=== PATIENT | female | born 2000 | race Two or more races ===

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

== ENCOUNTER 2022-04-06 19:53 | Emergency (ER) | payer OTHER ==
[~2022-04-06] VITALS: Ht 170.2 cm; Wt 78.5 kg
[~2022-04-06 19:53] MED LIST: KETO10TA2 PO
[2022-04-06] MEDS ORDERED: TRI-LO-ESTARYL1 EACH PO (20:10)
[2022-04-07] MEDS ORDERED: NAPROXEN375 MG PO (04:28)
[2022-04-07] MEDS ORDERED: PEPCID AC20 MG PO (04:28)
== END 2022-04-07 05:08 | disposition home or self-care (01) ==
LOC: ER 19:53 → EMR PED 19:53
DX: K29.70 Gastritis, unspecified, without bleeding (principal); N83.209 Unspecified ovarian cyst, unspecified side; I88.0 Nonspecific mesenteric lymphadenitis